=== PATIENT | male | born 1965 | race Hispanic/Latino ===

== ENCOUNTER 2022-04-11 12:00 | Emergency (ER) | payer OTHER ==
[~2022-04-11] VITALS: Ht 165.1 cm; Wt 98.9 kg
[~2022-04-11 12:00] MED LIST: BACL10TA PO; LISI20TA24 PO; MOME17N EN
[2022-04-11] MEDS ORDERED: ONDANSETRON 4MG INJ IVP ONE (12:30)
[2022-04-11] MEDS ORDERED: 0.9%NACL 1000ML 1,000 ML IV ONE (12:30)
[2022-04-11] MEDS ORDERED: KETOROLAC 30MG VIAL (30MG/ML) IVP ONE (12:30)
[2022-04-11 12:39] LABS: BASOPHILS % (AUTO) 0.5 % (0.0-5.0); EOSINOPHILS % (AUTO) 1.7 % (0.0-8.0); HEMATOCRIT 45.8 % (42-54); LYMPHOCYTES % (AUTO) 25.3 % (21.0-51.0); MEAN CORPUSCULAR HEMOGLOBIN 30.2 pg (27.0-33.0); MEAN CORPUSCULAR HGB CONC 34.3 g/dL (32.0-36.0); MEAN CORPUSCULAR VOLUME 88.1 fL (79-99); NEUTROPHILS % (AUTO) 65.9 % (40.0-77.0); PLATELET COUNT (AUTO) 183 K/uL (130-400); RED CELL DISTRIBUTION WIDTH 12.8 % (11.0-15.5); WHITE BLOOD COUNT (AUTO) 11.5 K/uL (4.8-10.8)
[2022-04-11 12:48] LABS: CREATININE 1.3 mg/dL (0.5-1.5); POTASSIUM 4.3 mmol/L (3.5-5.1)
[2022-04-11 12:52] LABS: ALBUMIN 3.7 g/dL (3.5-5.0); APPEARANCE,URINE CLEAR (CLEAR); BILIRUBIN,URINE NEGATIVE (NEGATIVE); COLOR,URINE LIGHT-YELLOW (YELLOW); GLUCOSE, URINE (UA) NEGATIVE (NEGATIVE); KETONES,URINE NEGATIVE (NEGATIVE); LEUKOCYTE ESTERASE ,URINE NEGATIVE Leu/uL (NEGATIVE); NITRATE,URINE NEGATIVE (NEGATIVE); OCCULT BLOOD,URINE LARGE (NEGATIVE); PROTEIN,URINE 20 mg/dL (NEGATIVE); TOTAL PROTEIN, SERUM 7.7 g/dL (6.0-8.3); UROBILINOGEN,URINE 0.2 mg/dL (0.2-1.0)
[2022-04-11 13:00] LABS: BACTERIA,URINE RARE /HPF (None Seen); MUCUS,URINE RARE LPF (None Seen); OTHER CASTS, URINE 1 /LPF (None Seen); RBC,URINE TNTC /HPF (0-1); SQUAMOUS EPITHELIAL CELL,UR RARE /HPF (0-2)
[2022-04-11] MEDS ORDERED: TAMS-1 PO (13:46)
[2022-04-11] MEDS ORDERED: CEPH500B PO (13:46)
[2022-04-11] MEDS ORDERED: IBUP-2070 PO (14:19)
[2022-04-11] MEDS ORDERED: IBUP-2077 PO (14:21)
[2022-04-11 14:30] VITALS: BP 167/88
== END 2022-04-11 14:32 | disposition home or self-care (01) ==
LOC: EDH 12:00
DX: N20.1 Calculus of ureter (principal); E11.9 Type 2 diabetes mellitus without complications; Z79.1 Long term (current) use of non-steroidal anti-inflammatories (NSAID); Z79.51 Long term (current) use of inhaled steroids; Z79.899 Other long term (current) drug therapy; Z88.1 Allergy status to other antibiotic agents; Z88.2 Allergy status to sulfonamides; Z87.442 Personal history of urinary calculi
CPT/HCPCS: 99285; 74176; 96374; 96361; 96375; 82150; 84484; 80053; 83690; 85025; 81001; 36415; 93005; J7030; J2405; J1885

== ENCOUNTER → 2022-11-27 | Outpatient (CLI) | payer OTHER ==
[~2022-11-27] MED LIST changes: +CEPH500B PO; +IBUP-2077 PO; +TAMS-1 PO
== END | disposition home or self-care (01) ==
LOC: RAH 10:23
PROVIDERS: ATTEND Internal Medicine Critical Care Medicine
DX: Z13.6 Encounter for screening for cardiovascular disorders (principal)
CPT/HCPCS: 75571

== ENCOUNTER → 2022-12-18 | Outpatient (CLI) | payer OTHER ==
[2022-12-18 16:52] LABS: CREATININE 1.1 mg/dL (0.5-1.5)
== END | disposition home or self-care (01) ==
LOC: LAB 15:38
PROVIDERS: ATTEND Student in an Organized Health Care Education/Training Program
DX: R94.31 Abnormal electrocardiogram [ECG] [EKG] (principal); I45.19 Other right bundle-branch block
CPT/HCPCS: 36415; 82565; 84520

== ENCOUNTER → 2022-12-24 | Outpatient (CLI) | payer OTHER | END | disposition home or self-care (01) | LOC: RAH 13:54 | PROVIDERS: ATTEND Internal Medicine Critical Care Medicine | DX: I70.0 Atherosclerosis of aorta (principal); R09.89 Other specified symptoms and signs involving the circulatory and respiratory systems | CPT/HCPCS: 93925 ==

== ENCOUNTER → 2023-01-03 | Outpatient (CLI) | payer OTHER ==
[~2023-01-03] MED LIST changes: +IOHEXOL 350 MG/ML 100ML INFUS..BTL IV ONE; +METOPROLOL TARTRATE 1 MG/ML 5ML VIAL IV ONE
== END | disposition home or self-care (01) ==
LOC: RAH 08:55
PROVIDERS: ATTEND Student in an Organized Health Care Education/Training Program
DX: R94.31 Abnormal electrocardiogram [ECG] [EKG] (principal)
CPT/HCPCS: 75574; J3490; Q9967

== ENCOUNTER → 2023-05-05 | Outpatient (CLI) | payer OTHER ==
[~2023-05-05] MED LIST changes: -IOHEXOL 350 MG/ML 100ML INFUS..BTL IV ONE; -METOPROLOL TARTRATE 1 MG/ML 5ML VIAL IV ONE
== END | disposition home or self-care (01) ==
LOC: RAH 07:56
PROVIDERS: ATTEND Student in an Organized Health Care Education/Training Program
DX: I70.0 Atherosclerosis of aorta (principal)
CPT/HCPCS: 76775

== ENCOUNTER → 2023-08-27 | Outpatient (CLI) | payer OTHER | END | disposition home or self-care (01) | LOC: RAH 10:20 | PROVIDERS: ATTEND Urology | DX: N20.0 Calculus of kidney (principal); Z87.442 Personal history of urinary calculi | CPT/HCPCS: 76770 ==

== ENCOUNTER 2024-02-18 06:00 | Day surgery (SDC) | payer OTHER ==
[2024-02-16 09:07] VITALS: BP 148/75; PULSE 68; RESP 18; TEMP 97.3
[2024-02-16 09:15] LABS: BASOPHILS # (AUTO) 0.08 K/uL (0.00-0.20); BASOPHILS % (AUTO) 0.7 % (0.0-5.0); EOSINOPHILS # (AUTO) 0.33 K/uL (0.00-0.70); HEMATOCRIT 57.6 % (42-54); IMMATURE GRANULOCYTE ABSOLUTE 0.06 K/uL (0-1); LYMPHOCYTES # (AUTO) 3.6 K/uL (1.0-4.8); LYMPHOCYTES % (AUTO) 32.9 % (21.0-51.0); MEAN CORPUSCULAR HEMOGLOBIN 30.4 pg (27.0-33.0); MEAN CORPUSCULAR HGB CONC 32.8 g/dL (32.0-36.0); MEAN CORPUSCULAR VOLUME 92.8 fL (79-99); MONOCYTES # (AUTO) 0.7 K/uL (0.1-1.0); MONOCYTES % (AUTO) 6.6 % (3.0-13.0); NEUTROPHILS # (AUTO) 6.2 K/uL (1.8-7.7); NEUTROPHILS % (AUTO) 56.3 % (40.0-77.0); PLATELET COUNT (AUTO) 159 K/uL (130-400); RED BLOOD CELL COUNT(AUTO) 6.21 MIL/uL (4.50-6.20); RED CELL DISTRIBUTION WIDTH 13.3 % (11.0-15.5)
[2024-02-16 09:32] LABS: INR 1.11 (0.85-1.15); PROTHROMBIN TIME 11.9 SEC (9.6-11.6)
[2024-02-16 09:33] LABS: PARTIAL THROMBOPLASTIN TIME 30.5 SEC (26.3-35.5)
[2024-02-16 09:35] LABS: CREATININE 1.2 mg/dL (0.5-1.3); POTASSIUM 5.6 mmol/L (3.5-5.1)
[2024-02-16 10:00] LABS: B-TYPE NATRIURETIC PEPTIDE < 5 pg/mL (0-100)
[2024-02-16 10:05] LABS: APPEARANCE,URINE CLEAR (CLEAR); BILIRUBIN,URINE NEGATIVE (NEGATIVE); COLOR,URINE YELLOW (YELLOW); GLUCOSE, URINE (UA) >=1000 mg/dL (NEGATIVE); KETONES,URINE NEGATIVE (NEGATIVE); LEUKOCYTE ESTERASE ,URINE NEGATIVE Leu/uL (NEGATIVE); NITRATE,URINE NEGATIVE (NEGATIVE); OCCULT BLOOD,URINE NEGATIVE (NEGATIVE); PROTEIN,URINE NEGATIVE (NEGATIVE); UROBILINOGEN,URINE 0.2 mg/dL (0.2-1.0)
[2024-02-16 10:06] LABS: ADD UA MICROSCOPIC YES
[2024-02-16 10:25] LABS: MUCUS,URINE RARE LPF (None Seen); RBC,URINE 0-1 /HPF (0-1); SQUAMOUS EPITHELIAL CELL,UR RARE /HPF (0-2)
[2024-02-18] VITALS (15 sets, daily range): BP systolic 122–170; BP diastolic 75–95; PULSE 66–83; RESP 16–18; TEMP 97.8–98.1
[~2024-02-18] VITALS: Ht 165.1 cm; Wt 93.5 kg
[~2024-02-18 06:00] MED LIST changes: +ATOR40TA71 PO; -BACL10TA PO; -CEPH500B PO; +DAPA10TA PO; -IBUP-2077 PO; -LISI20TA24 PO; -MOME17N EN; +SEMA2PEN SQ; -TAMS-1 PO
[2024-02-18] MEDS: 0.9%NACL 1000ML 1,000 ML IV ONE (06:43)
[2024-02-18 06:50] LABS: BASOPHILS # (AUTO) 0.06 K/uL (0.00-0.20); BASOPHILS % (AUTO) 0.6 % (0.0-5.0); EOSINOPHILS # (AUTO) 0.27 K/uL (0.00-0.70); EOSINOPHILS % (AUTO) 2.9 % (0.0-8.0); HEMATOCRIT 54.2 % (42-54); IMMATURE GRANULOCYTE ABSOLUTE 0.05 K/uL (0-1); LYMPHOCYTES # (AUTO) 3.1 K/uL (1.0-4.8); LYMPHOCYTES % (AUTO) 33.6 % (21.0-51.0); MEAN CORPUSCULAR HEMOGLOBIN 30.1 pg (27.0-33.0); MEAN CORPUSCULAR HGB CONC 33.2 g/dL (32.0-36.0); MEAN CORPUSCULAR VOLUME 90.6 fL (79-99); MONOCYTES # (AUTO) 0.7 K/uL (0.1-1.0); MONOCYTES % (AUTO) 7.3 % (3.0-13.0); NEUTROPHILS # (AUTO) 5.1 K/uL (1.8-7.7); NEUTROPHILS % (AUTO) 55.1 % (40.0-77.0); PLATELET COUNT (AUTO) 161 K/uL (130-400); RED BLOOD CELL COUNT(AUTO) 5.98 MIL/uL (4.50-6.20); RED CELL DISTRIBUTION WIDTH 13.4 % (11.0-15.5); WHITE BLOOD COUNT (AUTO) 9.3 K/uL (4.8-10.8)
[2024-02-18] MEDS ORDERED: HEParin-NS 1,000 UNIT/500 ML 1,000 ML IV ONE (07:08)
[2024-02-18] MEDS ORDERED: IOHEXOL 350 MG/ML 100ML INFUS..BTL IV ONE (07:08)
[2024-02-18] MEDS ORDERED: LIDOCAINE HCL 400MG/20ML VIAL ONE (07:08)
[2024-02-18] MEDS ORDERED: HEParin 10,000 UNIT/10ML (1,000 UNIT/ML) VIAL ONE (07:08)
[2024-02-18] MEDS ORDERED: VERAPAMIL HCL 2.5 MG/ML VIAL ONE (07:08)
[2024-02-18] MEDS ORDERED: NITROGLYCERIN 50MG VIAL ONE (07:09)
[2024-02-18] MEDS ORDERED: FENTanyl CITRate PF 50 MCG/1 ML 2ML VIAL ONE (07:25)
[2024-02-18] MEDS ORDERED: MIDAZOLAM HCL 1 MG/ML 2ML VIAL ONE ×2 (07:25→07:32)
[2024-02-18] MEDS ORDERED: DEXTROSE 50%-WATER 50 ML DISP.SYRIN IV PRN (08:30)
[2024-02-18] MEDS ORDERED: GLUCAGON 1MG KIT 1 MG ML IM PRN (08:30)
[2024-02-18] MEDS ORDERED: 0.9%NACL 1000ML 1,000 ML IV SCH (08:30)
[2024-02-18] MEDS ORDERED: ASPI-1197 PO (08:30)
[2024-02-18] MEDS ORDERED: CARV6.2579 PO (08:32)
[2024-02-18] MEDS ORDERED: ASPIRIN 81MG CHEW TAB PO SCH (09:00)
[2024-02-18] MEDS ORDERED: carVEDIlol 6.25 MG TABLET PO SCH (09:00)
== END 2024-02-18 12:10 | disposition home or self-care (01) ==
LOC: DAH 06:00
PROVIDERS: ATTEND Student in an Organized Health Care Education/Training Program
DX: I25.118 Atherosclerotic heart disease of native coronary artery with other forms of angina pectoris (principal); R94.31 Abnormal electrocardiogram [ECG] [EKG]; R93.1 Abnormal findings on diagnostic imaging of heart and coronary circulation; E78.5 Hyperlipidemia, unspecified; E11.9 Type 2 diabetes mellitus without complications; I45.10 Unspecified right bundle-branch block; I11.9 Hypertensive heart disease without heart failure; Z82.49 Family history of ischemic heart disease and other diseases of the circulatory system; Z79.01 Long term (current) use of anticoagulants; Z79.899 Other long term (current) drug therapy
CPT/HCPCS: 80048; 83880; 85025 ×2; 85610; 85730; 81001; 36415 ×2; 71045; 93005; 93458; 84132; 82948 ×2; C1769 ×2; C1894; A4649; J3010; J3490 ×3; J7030; J1644 ×2; J2250 ×2; Q9967; A4215; A4222; A4221; A4663; A4216; A4606; Q9965; A4223 ×3; 96360; 96361; 99156; 99157

== ENCOUNTER 2024-04-05 06:04 | Day surgery (SDC) | payer OTHER ==
[2024-04-01 10:28] VITALS: BP 130/70; PULSE 66; RESP 18; TEMP 97.1
[2024-04-01 10:31] LABS: BASOPHILS # (AUTO) 0.06 K/uL (0.00-0.20); BASOPHILS % (AUTO) 0.6 % (0.0-5.0); EOSINOPHILS # (AUTO) 0.29 K/uL (0.00-0.70); EOSINOPHILS % (AUTO) 3.1 % (0.0-8.0); HEMATOCRIT 53.3 % (42-54); IMMATURE GRANULOCYTE ABSOLUTE 0.04 K/uL (0-1); LYMPHOCYTES # (AUTO) 3.6 K/uL (1.0-4.8); LYMPHOCYTES % (AUTO) 38.6 % (21.0-51.0); MEAN CORPUSCULAR HEMOGLOBIN 30.5 pg (27.0-33.0); MEAN CORPUSCULAR HGB CONC 33.2 g/dL (32.0-36.0); MEAN CORPUSCULAR VOLUME 91.9 fL (79-99); MONOCYTES # (AUTO) 0.7 K/uL (0.1-1.0); MONOCYTES % (AUTO) 7.6 % (3.0-13.0); NEUTROPHILS # (AUTO) 4.7 K/uL (1.8-7.7); NEUTROPHILS % (AUTO) 49.7 % (40.0-77.0); PLATELET COUNT (AUTO) 159 K/uL (130-400); RED CELL DISTRIBUTION WIDTH 13.7 % (11.0-15.5); WHITE BLOOD COUNT (AUTO) 9.4 K/uL (4.8-10.8)
[2024-04-01 10:41] LABS: CREATININE 1.1 mg/dL (0.5-1.3); POTASSIUM 5.2 mmol/L (3.5-5.1)
[2024-04-01 10:44] LABS: INR 1.11 (0.85-1.15); PROTHROMBIN TIME 11.9 SEC (9.6-11.6)
[2024-04-01 10:54] LABS: B-TYPE NATRIURETIC PEPTIDE 7 pg/mL (0-100)
[2024-04-01 10:56] LABS: APPEARANCE,URINE CLEAR (CLEAR); BILIRUBIN,URINE NEGATIVE (NEGATIVE); COLOR,URINE LIGHT-YELLOW (YELLOW); GLUCOSE, URINE (UA) >=1000 mg/dL (NEGATIVE); KETONES,URINE NEGATIVE (NEGATIVE); LEUKOCYTE ESTERASE ,URINE NEGATIVE Leu/uL (NEGATIVE); NITRATE,URINE NEGATIVE (NEGATIVE); OCCULT BLOOD,URINE NEGATIVE (NEGATIVE); PROTEIN,URINE NEGATIVE (NEGATIVE); UROBILINOGEN,URINE 0.2 mg/dL (0.2-1.0)
[2024-04-01 10:57] LABS: ADD UA MICROSCOPIC YES
[2024-04-01 11:05] LABS: RBC,URINE 0-1 /HPF (0-1); SQUAMOUS EPITHELIAL CELL,UR RARE /HPF (0-2); WBC,URINE 0-1 /HPF (0-1)
--- NOTE | 2024-04-01 13:01 | EKG ---
[facility] Test Date: 2024-04-01 Test Time: 11:15:15 Pat Name: GIGI ROMERO Department: [facility] Room: Gender: M Caser Up: [id number] : 1965 Requested By: JADIEL CHUNG Order Number: [id number] Reading MD: Madi White Measurements Intervals [place] Rate: 67 P: 30 [place]: 143 QRS: 154 QRSD: 111 T: 12 QT: 421 QTc: 445 Interpretive Statements Sinus rhythm Probable right ventricular hypertrophy Compared to ECG 02/16/2024 08:56:14 Intraventricular conduction delay no longer present Electronically Signed On 04-04-2024 17:25:17 EMERGENCY WORKER by Madi White Please click the below link to view image of tracing.
--- NOTE | 2024-04-01 16:24 | HMCIMG ---
CHEST 1VW HISTORY: Preop COMPARISON: 02/16/2024 FINDINGS: A frontal projection of the chest was obtained. No acute pulmonary infiltrates is seen. The heart is normal in size. Prominent interstitial markings are seen. No evidence of aortic calcification is seen. IMPRESSION: 1. No acute pulmonary infiltrate is seen.
--- NOTE | 2024-04-02 11:01 | NUR ---
REPORT REPORTED BMP TO DR Kathrine CHUNG. RECEIVED ORDERS TO REPEAT POTASSIUM
[2024-04-05] VITALS (15 sets, daily range): BP systolic 119–147; BP diastolic 74–93; PULSE 66–85; RESP 16–18; TEMP 97.5–98.1
[~2024-04-05] VITALS: Ht 165.1 cm; Wt 92.4 kg
[~2024-04-05 06:04] MED LIST changes: +ASPI-1197 PO; +CARV6.2579 PO
[2024-04-05] MEDS ORDERED: LIDOCAINE HCL 400MG/20ML VIAL ONE (07:07)
[2024-04-05] MEDS ORDERED: HEParin 10,000 UNIT/10ML (1,000 UNIT/ML) VIAL ONE (07:08)
[2024-04-05] MEDS ORDERED: IOHEXOL 350 MG/ML 100ML INFUS..BTL IV ONE (07:08)
[2024-04-05] MEDS ORDERED: VERAPAMIL HCL 2.5 MG/ML VIAL ONE (07:08)
[2024-04-05] MEDS ORDERED: NITROGLYCERIN 50MG VIAL ONE (07:08)
[2024-04-05] MEDS ORDERED: HEParin-NS 1,000 UNIT/500 ML 1,000 ML IV ONE (07:08)
[2024-04-05] MEDS ORDERED: ASPIRIN 81MG CHEW TAB ONE (07:23)
[2024-04-05] MEDS ORDERED: cloPIDOgrel 300MG TAB ONE (07:24)
[2024-04-05] MEDS ORDERED: FENTanyl CITRate PF 50 MCG/1 ML 2ML VIAL ONE ×2 (07:25→07:56)
[2024-04-05] MEDS ORDERED: MIDAZOLAM HCL 1 MG/ML 2ML VIAL ONE ×3 (07:25→07:56)
[2024-04-05] MEDS: 0.9%NACL 1000ML 1,000 ML IV SCH (07:32)
[2024-04-05] MEDS ORDERED: HEParin-NS 1,000 UNIT/500 ML 500 ML IV ONE (08:06)
--- NOTE | 2024-04-05 09:13 | PRN ---
PROCEDURE REPORT DATE OF PROCEDURE: Apr 05, 2024 ROLL ON WORKER: [ Jadiel espinal MD] PROCEDURE PERFORMED: Conscious sedation Ultrasound guided right radial artery access Selective left coronary artery angiogram IVUS of the LAD and left main Status post successful IVUS guided PTCA/PCI of the prox to mid to distal LAD x2 (3 x 30 mm and 2.5 x 30 mm daphney Cumming drug-eluting stents in overlapping fashion) Status post successful PTCA/PCI of the proximal left circumflex (2.5 x 18 mm ernestina x Cumming drug-eluting stent) TR band 13 ester over right radial artery INDICATION: Severe multivessel CAD Brief HPI: 58-year-old male with a past medical history of hypertension, hyperlipidemia, type 2 diabetes, morbid obesity, presented to Cardiology Clinic endorsing progressive dyspnea on exertion atypical episodes of chest pressure. He underwent extensive cardiac workup including coronary CTA revealing severe two-vessel CAD. This led to coronary angiogram revealing severe proximal to mid to distal LAD and proximal left circ stenosis. Given his severe two-vessel disease in the setting of diabetes who was referred to CV surgery for CABG evaluation. Following extensive discussion was CV surgery the patient opted not to proceed with CABG and proceed with high-risk PCI. All the risks were explained in great details including long-term stent patency rates and type 2 diabetes. Patient verbalized understanding and agrees to proceeding with percutaneous intervention of the LAD and left circumflex. DESCRIPTION OF PROCEDURE: After informed consent was obtained, the patient was prepped and draped in the usual sterile fashion. A 6 Estonian arterial sheath was inserted in the right radial artery using ultrasound guidance with first pass wall puncture. The arterial sheath was aspirated and flushed. A 6 Estonian XB three guide was then advanced to the ascending aorta over an exchange length J-tip guidewire, was aspirated and flushed, and was used for selective coronary angiograms in multiple obliquities. [place] [address] units of IV heparin, aspirin 75 mg daily, and Plavix 300 mg p.o., and following therapeutic ACT we advanced a [place] into the distal the. We then advanced a 2nd [place] into the distal left circumflex under fluoroscopic guidance. We began to pre dilate the proximal left circumflex using a 2.5 x 15 mm compliant balloon to nominal pressures. We then deployed a 2.5 x 18 mm daphney Cumming drug-eluting stent within the proximal left circumflex to nominal pressures. We post dilated the stent using a 2.5 by 15 mm noncompliant balloon to 18 ESTER. We then removed the circ balloon and wire. We then directed our attention to the LAD and began to pre dilate the mid to distal LAD using a two by 25 mm compliant balloon to nominal pressures serially to the proximal segment. We then performed IVUS imaging of the LAD and left main. We then advanced a 2.5 x 30 mm daphney Cumming drug-eluting stent was deployed in the mid to distal LAD to nominal pressures. We deployed a 2nd 3 x 30 mm daphney Cumming drug-eluting stent within the proximal LAD in overlapping fashion. The stents were post dilated using a three by 30 mm noncompliant balloon to eight ESTER distally and 16/18 ESTER proximally. Final angiographic images revealed cheondoism of JAMES three flow with no dissections or perforations. All wires and catheters removed from the body and a TR band was placed over the right radial artery with patent hemostasis. Patient tolerated procedure well with no postprocedural complications of transferred to chemical laboratory tester holding in stable condition CORONARY ANGIOGRAM: LEFT MAIN: Patent and 0% stenosis. Gives rise to LCx and LAD. LEFT ANTERIOR DESCENDING: Large vessel giving rise to two Diagonal branches. T diffusely calcified with 60% proximal becoming 70- 80% in the mid to distal segment. D1 is large with no disease LEFT CIRCUMFLEX: Large and gives rise to two OM branches. 80% proximal stenosis at the OM bifurcation. OM1 is widely patent RIGHT CORONARY ARTERY: Not engaged/study on this procedure as coronary anatomy was known from recent coronary angiogram on 02/23/2024 HEMOSTASIS: TR band 12 ester over right radial artery INTERVENTIONS: Status post successful IVUS guided PTCA/PCI of the prox to mid/distal LAD with two overlapping stents (3 x 30 mm and 2.5 x 30 mm daphney Cumming drug-eluting stents) Status post successful PTCA/PCI of the proximal left circumflex (2.5 x 18 mm daphney Cumming drug-eluting stent) COMPLICATIONS: None FINDINGS: Normal coronary anatomy and severe two-vessel CAD status post successful LAD and left circumflex revascularization ESTIMATED BLOOD LOSS: 5 cc RECOMMENDATIONS/INSTRUCTIONS: Aggressive risk factor modification along with DAPT therapy (aspirin 81 mg p.o. daily/Plavix 75 mg q.day) for six months in addition to high-intensity statin therapy Continue beta-jack the patient was advised on tight glycemic control Follow up in cardiology clinic 1-2 weeks post discharge CONTRAST DELIVERED TO PATIENT (mL): 170cc JADIEL Spear MD, MD Apr 05, 2024 09:13
[2024-04-05] MEDS ORDERED: 0.9%NACL 1000ML 1,000 ML IV SCH (09:30)
[2024-04-05] MEDS ORDERED: DEXTROSE 50%-WATER 50 ML DISP.SYRIN IV PRN (09:30)
[2024-04-05] MEDS ORDERED: GLUCAGON 1MG KIT 1 MG ML IM PRN (09:30)
[2024-04-05] MEDS ORDERED: CLOP-31 PO (09:42)
--- NOTE | 2024-04-05 13:02 | NUR ---
STENT CARDS GIVEN TO DAUGHTER
[2024-04-06] MEDS ORDERED: cloPIDOgrel 75MG TAB PO SCH (09:00)
[2024-04-06] MEDS ORDERED: ASPIRIN 81MG CHEW TAB PO SCH (09:00)
== END 2024-04-05 13:00 | disposition home or self-care (01) ==
LOC: DAH 06:04
PROVIDERS: ATTEND Student in an Organized Health Care Education/Training Program
DX: I25.10 Atherosclerotic heart disease of native coronary artery without angina pectoris (principal); R94.31 Abnormal electrocardiogram [ECG] [EKG]; I45.10 Unspecified right bundle-branch block; I11.9 Hypertensive heart disease without heart failure; E11.65 Type 2 diabetes mellitus with hyperglycemia; E78.5 Hyperlipidemia, unspecified; E66.01 Morbid (severe) obesity due to excess calories; G47.33 Obstructive sleep apnea (adult) (pediatric); Z68.34 Body mass index [BMI] 34.0-34.9, adult; Z79.82 Long term (current) use of aspirin; Z79.01 Long term (current) use of anticoagulants; Z79.899 Other long term (current) drug therapy
CPT/HCPCS: 80048; 83880; 85025; 85610; 85730; 81001; 36415 ×2; 71045; 93005; 93454; 92978; 92979; 84132; 85347 ×2; 82948; Q9965 ×2; C1769 ×4; C1725 ×4; C1874 ×3; C1894; A4649; C1887; C1753; J3010 ×2; J3490 ×3; J7030; J1644 ×3; J2250 ×3; Q9967; C9600 ×2; 99156; 99157; C9601